=== PATIENT | male | born 1960 | race African-American/Black ===

== ENCOUNTER 2016-04-25 08:34 | Inpatient (IN) | payer OTHER ==
[2016-04-25 08:59] VITALS: BMI 25.0
--- NOTE | 2016-04-25 12:51 | HP ---
CIWA Score - CIWA Score Nausea/Vomitin-No Nausea/No Vomiting Muscle Tremors: 4-Moderate,w/Arms Extend Anxiety: 4-Mod. Anxious/Guarded Agitation: 4-Moderately Restless Paroxysmal Sweats: 3 Orientation: 0-Oriented Tacttile Disturbances: 0-None Auditory Disturbances: 0-None Visual Disturbances: 0-None Headache: 2-Mild CIWA-Ar Total Score: 17 Admission ROS BHS - HPI Chief Complaint: I am tired and need to stop. Allergies/Adverse Reactions: Allergies Allergy/AdvReac Type Severity Reaction Status Date / Time No Known Allergies Allergy Verified 04/25/16 09:56 History of Present Illness: pt is a 56yr old male with a history of alcohol and crack/cocaine dependence seeking detox for treatment. Exam Limitations: No Limitations - Ebola screening Have you traveled outside of the country in the last 21 days: No Have you had contact with anyone from an Ebola affected area: No Have you been sick,other than usual withdrawal symptoms: No Do you have a fever: No - Review of Systems Constitutional: Chills, Diaphoresis, Loss of Appetite, Night Sweats, Unintentional Wgt. Loss EENT: reports: No Symptoms Reported Respiratory: reports: Cough, Productive cough Cardiac: reports: No Symptoms Reported GI: reports: Poor Appetite, Poor Fluid Intake : reports: No Symptoms Reported Musculoskeletal: reports: Back Pain Integumentary: reports: Flushing, Sweating Neuro: reports: Headache, Tingling, Tremors Endocrine: reports: Excessive Sweating, Flushing, Intolerance to Cold, Intolerance to Heat Hematology: reports: No Symptoms Reported Psychiatric: reports: Judgement Intact, Mood/Affect Appropiate, Orientated x3, Agitated, Anxious Other Systems: Reviewed and Negative Patient History - Patient Medical History Hx Anemia: No Hx Asthma: No Hx Chronic Obstructive Pulmonary Disease (COPD): No Hx Cancer: No Hx Cardiac Disorders: No Hx Congestive Heart Failure: No Hx Hypertension: No Hx Hypercholesterolemia: No Hx Pacemaker: No HX Cerebrovascular Accident: No Hx Seizures: No Hx Dementia: No Hx Diabetes: No Hx Gastrointestinal Disorders: No Hx Liver Disease: No Hx Genitourinary Disorders: No Hx Sexually Transmitted Disorders: No Hx Renal Disease (ESRD): No Hx Thyroid Disease: No Hx Human Immunodeficiency Virus (HIV): No (negative) Hx Hepatitis C: No (negative) Hx Depression: No Hx Suicide Attempt: No (denies) Hx Bipolar Disorder: No Hx Schizophrenia: No - Patient Surgical History Past Surgical History: No Hx Neurologic Surgery: No Hx Cataract Extraction: No Hx Cardiac Surgery: No Hx Lung Surgery: No Hx Breast Surgery: No Hx Breast Biopsy: No Hx Abdominal Surgery: No Hx Appendectomy: No Hx Cholecystectomy: No Hx Genitourinary Surgery: No Hx Section: No Hx Orthopedic Surgery: No Anesthesia Reaction: No - PPD History Previous Implant?: Yes Documented Results: Negative w/o proof PPD to be Administered?: Yes - Reproductive History Patient is a Female of Child Bearing Age (11 -55 yrs old): No - Smoking Cessation Smoking history: Current every day smoker Have you smoked in the past 12 months: Yes Aproximately how many cigarettes per day: 6 Hx Chewing Tobacco Use: No Initiated information on smoking cessation: Yes 'Breaking Loose' booklet given: 04/25/16 - Substance & Tx. History Hx Alcohol Use: Yes Hx Substance Use: Yes Substance Use Type: Alcohol - Substances Abused Crack Route: Smoking Frequency: Daily Amount used: $200 Age of first use: 30 Date of Last Use: 04/24/16 Heroin Route: Inhalation Frequency: 1-3 times last 30 days Amount used: 1 bag Age of first use: 43 Date of Last Use: 04/24/16 Alcohol-vodka/beer Route: Oral Frequency: Daily Amount used: 5-6 pts./3-6 pks. Age of first use: 16 Date of Last Use: 04/25/16 Family Disease History - Family Disease History Family History: Denies Admission Physical Exam S - Vital Signs Vital Signs: Vital Signs - 24 hr 04/25/16 08:57 Temperature 97.0 F L Pulse Rate 80 Respiratory 18 Rate Blood Pressure 117/68 - Physical General Appearance: Yes: Appropriately Dressed, Moderate Distress, Alcohol on Breath, Tremorous, Irritable, Sweating, Anxious HEENTM: Yes: Normal Voice, Nasal Congestion Respiratory: Yes: Lungs Clear, Normal Breath Sounds, No Respiratory Distress Neck: Yes: No masses,lesions,Nodules Breast: Yes: Within Normal Limits Cardiology: Yes: Regular Rhythm, Regular Rate, S1, S2 Abdominal: Yes: Normal Bowel Sounds, Non Tender, Soft Genitourinary: Yes: Within Normal Limits Back: Yes: Normal Inspection Musculoskeletal: Yes: full range of Motion Extremities: Yes: Normal Capillary Refill, Normal Inspection, Tremors Neurological: Yes: Fully Oriented, Alert, Normal Response Integumentary: Yes: Normal Color, Diaphoresis Lymphatic: Yes: Within Normal Limits - Diagnostic (1) Alcohol dependence with uncomplicated withdrawal Current Visit: Yes Status: Chronic (2) Crack cocaine use Current Visit: Yes Status: Chronic Cleared for Admission [facility] - Detox or Rehab [facility] Level of Care: Medically Managed Detox Regimen/Protocol: Librium [facility] Breath Alcohol Content Breath Alcohol Content: 0.016 Urine Drug Screen - Results Drug Screen Negative: No Urine Drug Screen Results: HEATHER-Cocaine, OPI-Opiates
[2016-04-25] MEDS ORDERED: MAGNESIUM CITRATE 300 ML BOTTLE PO PRN (12:52)
[2016-04-25] MEDS ORDERED: MAGNESIUM HYDROX 2400MG/30ML ORAL SUSPENSION 30 ML CUP PO PRN (12:52)
[2016-04-25] MEDS ORDERED: IBUPROFEN 400 MG TABLET (FP) PO PRN (12:52)
[2016-04-25] MEDS ORDERED: chlordiazePOXIDE HCL 25 MG CAPSULE PO PRN (12:52)
[2016-04-25] MEDS ORDERED: LOPERAMIDE HCL 2 MG CAPSULE PO PRN (12:52)
[2016-04-25] MEDS ORDERED: MAG HYDROX/AL HYDROX/SIMETH 30 ML UNIT-DOSE CUP PO PRN (12:52)
[2016-04-25] MEDS ORDERED: MENTHOL/PHENOL 1 EACH UD MM PRN (12:52)
[2016-04-25] MEDS ORDERED: hydrOXYzine PAMOATE 50 MG CAPSULE (FP) PO PRN (12:52)
[2016-04-25] MEDS ORDERED: guaiFENesin/D-METHORPHAN HB 10 ML UNIT-DOSE CUPS PO PRN (12:52)
[2016-04-25] MEDS ORDERED: ACETAMINOPHEN 325 MG TABLET (FP) PO PRN (12:52)
[2016-04-25] MEDS ORDERED: chlordiazePOXIDE HCL 25 MG CAPSULE PO ONE (12:52)
[2016-04-25] MEDS ORDERED: P-EPHED 60MG/TRIPROLIDI 2.5MG TABLET PO PRN (12:52)
[2016-04-25] MEDS: chlordiazePOXIDE HCL 25 MG CAPSULE PO SCH ×3 (13:11→22:10)
--- NOTE | 2016-04-25 13:56 | EKG ---
Test Reason : Blood Pressure : / mmHG Vent. Rate : 067 BPM Atrial Rate : 067 BPM P-R Int : 160 ms QRS Dur : 096 ms QT Int : 418 ms P-R-T Axes : 056 073 062 degrees QTc Int : 441 ms NORMAL SINUS RHYTHM MINIMAL VOLTAGE CRITERIA FOR LVH, MAY BE NORMAL VARIANT EARLY REPOLARIZATION BORDERLINE ECG NO PREVIOUS ECGS AVAILABLE Confirmed by SARAHI LUIS, KATIANA ([id number]) on 04/25/2016 1:55:25 PM Referred By: Dayo Vizcarra Confirmed By:KATIANA MCCLAIN MD
[2016-04-25 19:22] LABS: URINE APPEARANCE CLEAR; URINE BILIRUBIN NEGATIVE (NEGATIVE); URINE BLOOD NEGATIVE (NEGATIVE); URINE COLOR LTYELLOW; URINE GLUCOSE (UA) NEGATIVE (NEGATIVE); URINE KETONE NEGATIVE (NEGATIVE); URINE LEUK ESTERASE NEGATIVE (NEGATIVE); URINE NITRITE NEGATIVE (NEGATIVE); URINE PROTEIN NEGATIVE (NEGATIVE); URINE UROBILINOGEN NEGATIVE E.U./dl (0.2-1.0)
[2016-04-25] MEDS: diphenhydrAMINE HCL 50 MG CAPSULE PO PRN (22:09)
[2016-04-25] MEDS: THIAMINE HCL 100 MG TABLET (FP) PO SCH (22:09)
[2016-04-26] MEDS: chlordiazePOXIDE HCL 25 MG CAPSULE PO SCH ×4 (05:47→22:10)
[2016-04-26 10:10] LABS: MCH 32.2 pg (25.7-33.7); MCHC 33.2 g/dl (32.0-35.9); MEAN CELL VOLUME 97.1 fl (80-96); MEAN PLT VOLUME 7.9 fl (7.5-11.1); PLATELET COUNT 154 K/MM3 (134-434); RDW 14.1 % (11.9-15.9); WHITE BLOOD COUNT 3.1 K/mm3 (4.0-10.0)
[2016-04-26] MEDS: NICOTINE 14 MG/24 HOURS TOPICAL PATCH TD SCH (10:10)
[2016-04-26] MEDS: PRENATAL VITAMINS W/ FOLIC ACID TABLET (FP) PO SCH (10:10)
[2016-04-26] MEDS: NICOTINE POLACRILEX 4 MG GUM BUC PRN ×2 (10:11→22:49)
[2016-04-26 10:31] LABS: ALBUMIN 3.8 g/dl (3.4-5.0); ALK PHOS 131 U/L (45-117); ANION GAP 9 (8-16); BILIRUBIN,TOTAL 0.9 mg/dL (0.2-1.0); CO2 32 mmol/L (21-32); GLUCOSE,RANDOM 96 mg/dL (74-106); SGOT/AST 32 U/L (15-37); SGPT/ALT 24 U/L (12-78)
[2016-04-26] MEDS: THIAMINE HCL 100 MG TABLET (FP) PO SCH (22:09)
[2016-04-26] MEDS: diphenhydrAMINE HCL 50 MG CAPSULE PO PRN (22:10)
[2016-04-27] MEDS: chlordiazePOXIDE HCL 25 MG CAPSULE PO SCH (05:35)
[2016-04-27] MEDS: PRENATAL VITAMINS W/ FOLIC ACID TABLET (FP) PO SCH (10:13)
[2016-04-27] MEDS: NICOTINE 14 MG/24 HOURS TOPICAL PATCH TD SCH (10:13)
[2016-04-27] MEDS: chlordiazePOXIDE 5 MG CAPSULE PO SCH ×3 (10:13→22:15)
[2016-04-27] MEDS: NICOTINE POLACRILEX 4 MG GUM BUC PRN ×2 (10:14→13:48)
--- NOTE | 2016-04-27 10:26 | PN ---
[facility] CIWA - CIWA Score Nausea/Vomitin-No Nausea/No Vomiting Muscle Tremors: 4-Moderate,w/Arms Extend Anxiety: 4-Mod. Anxious/Guarded Agitation: 4-Moderately Restless Paroxysmal Sweats: 1-Minimal Palms Moist Orientation: 0-Oriented Tacttile Disturbances: 3-Moderate Itch/Numb/Burn Auditory Disturbances: 0-None Visual Disturbances: 0-None Headache: 0-None Present CIWA-Ar Total Score: 16 BHS Progress Note (SOAP) Subjective: ANXIETY,SWEATS,TREMORS,FATIGUE. Objective: 04/27/16 10:25 Vital Signs Temperature 96.1 F L 04/27/16 09:40 Pulse Rate 82 04/27/16 09:40 Respiratory Rate 20 04/27/16 09:40 Blood Pressure 120/86 04/27/16 09:40 O2 Sat by Pulse Oximetry (%) Laboratory Last Values WBC 3.1 K/mm3 (4.0-10.0) L 04/26/16 06:00 RBC 4.11 M/mm3 (4.00-5.60) 04/26/16 06:00 Hgb 13.3 GM/dL (11.7-16.9) 04/26/16 06:00 Hct 39.9 % (35.4-49) 04/26/16 06:00 MCV 97.1 fl (80-96) H 04/26/16 06:00 MCHC 33.2 g/dl (32.0-35.9) 04/26/16 06:00 RDW 14.1 % (11.9-15.9) 04/26/16 06:00 Plt Count 154 K/MM3 (134-434) 04/26/16 06:00 MPV 7.9 fl (7.5-11.1) 04/26/16 06:00 Sodium 143 mmol/L (136-145) 04/26/16 06:00 Potassium 3.4 mmol/L (3.5-5.1) L 04/26/16 06:00 Chloride 102 mmol/L (98-107) 04/26/16 06:00 Carbon Dioxide 32 mmol/L (21-32) 04/26/16 06:00 Anion Gap 9 (8-16) 04/26/16 06:00 BUN 9 mg/dL (7-18) 04/26/16 06:00 Creatinine 1.0 mg/dL (0.7-1.3) 04/26/16 06:00 Creat Clearance w eGFR > 60 (>60) 04/26/16 06:00 Random Glucose 96 mg/dL (74-106) 04/26/16 06:00 Calcium 9.0 mg/dL (8.5-10.1) 04/26/16 06:00 Total Bilirubin 0.9 mg/dL (0.2-1.0) 04/26/16 06:00 AST 32 U/L (15-37) 04/26/16 06:00 ALT 24 U/L (12-78) 04/26/16 06:00 Alkaline Phosphatase 131 U/L (45-117) H 04/26/16 06:00 Total Protein 7.0 g/dl (6.4-8.2) 04/26/16 06:00 Albumin 3.8 g/dl (3.4-5.0) 04/26/16 06:00 Urine Color Ltyellow 04/25/16 13:40 Urine Appearance Clear 04/25/16 13:40 Urine pH 6.0 (5.0-8.0) 04/25/16 13:40 Ur Specific [place] 1.015 (1.001-1.035) 04/25/16 13:40 Urine Protein Negative (NEGATIVE) 04/25/16 13:40 Urine Glucose (UA) Negative (NEGATIVE) 04/25/16 13:40 Urine Ketones Negative (NEGATIVE) 04/25/16 13:40 Urine Blood Negative (NEGATIVE) 04/25/16 13:40 Urine Nitrite Negative (NEGATIVE) 04/25/16 13:40 Urine Bilirubin Negative (NEGATIVE) 04/25/16 13:40 Urine Urobilinogen Negative E.U./dl (0.2-1.0) 04/25/16 13:40 Ur Leukocyte Esterase Negative (NEGATIVE) 04/25/16 13:40 RPR Titer Nonreactive (NONREACTIVE) 04/26/16 06:00 Hepatitis C Antibody 0.1 s/co ratio (0.0-0.9) 04/25/16 12:55 Assessment: 04/27/16 10:26 WITHDRAWAL SX Plan: CONTINUE DETOX
[2016-04-27] MEDS: POTASSIUM CHLORIDE TABS 20 MEQ TABLET.ER (FP) PO SCH (12:12)
[2016-04-27] MEDS: diphenhydrAMINE HCL 50 MG CAPSULE PO PRN (22:15)
[2016-04-27] MEDS: THIAMINE HCL 100 MG TABLET (FP) PO SCH (22:15)
[2016-04-28] MEDS: chlordiazePOXIDE 5 MG CAPSULE PO SCH (05:58)
[2016-04-28] MEDS: PRENATAL VITAMINS W/ FOLIC ACID TABLET (FP) PO SCH (10:25)
[2016-04-28] MEDS: POTASSIUM CHLORIDE TABS 20 MEQ TABLET.ER (FP) PO SCH (10:25)
[2016-04-28] MEDS: chlordiazePOXIDE HCL 10 MG CAPSULE PO SCH ×3 (10:25→22:19)
[2016-04-28] MEDS: NICOTINE POLACRILEX 4 MG GUM BUC PRN ×2 (10:26→14:39)
[2016-04-28] MEDS: NICOTINE 14 MG/24 HOURS TOPICAL PATCH TD SCH (10:26)
--- NOTE | 2016-04-28 13:45 | PN ---
BHS Progress Note (SOAP) Subjective: sweating,interrupted sleep,restless Objective: 04/28/16 13:41 Vital Signs - 8 hr 04/28/16 04/28/16 06:41 10:46 Temperature 96.1 F L 98.6 F Pulse Rate 74 89 Respiratory 16 20 Rate Blood Pressure 106/62 112/73 Laboratory Last Values WBC 3.1 K/mm3 (4.0-10.0) L 04/26/16 06:00 RBC 4.11 M/mm3 (4.00-5.60) 04/26/16 06:00 Hgb 13.3 GM/dL (11.7-16.9) 04/26/16 06:00 Hct 39.9 % (35.4-49) 04/26/16 06:00 MCV 97.1 fl (80-96) H 04/26/16 06:00 MCHC 33.2 g/dl (32.0-35.9) 04/26/16 06:00 RDW 14.1 % (11.9-15.9) 04/26/16 06:00 Plt Count 154 K/MM3 (134-434) 04/26/16 06:00 MPV 7.9 fl (7.5-11.1) 04/26/16 06:00 Sodium 143 mmol/L (136-145) 04/26/16 06:00 Potassium 3.4 mmol/L (3.5-5.1) L 04/26/16 06:00 Chloride 102 mmol/L (98-107) 04/26/16 06:00 Carbon Dioxide 32 mmol/L (21-32) 04/26/16 06:00 Anion Gap 9 (8-16) 04/26/16 06:00 BUN 9 mg/dL (7-18) 04/26/16 06:00 Creatinine 1.0 mg/dL (0.7-1.3) 04/26/16 06:00 Creat Clearance w eGFR > 60 (>60) 04/26/16 06:00 Random Glucose 96 mg/dL (74-106) 04/26/16 06:00 Calcium 9.0 mg/dL (8.5-10.1) 04/26/16 06:00 Total Bilirubin 0.9 mg/dL (0.2-1.0) 04/26/16 06:00 AST 32 U/L (15-37) 04/26/16 06:00 ALT 24 U/L (12-78) 04/26/16 06:00 Alkaline Phosphatase 131 U/L (45-117) H 04/26/16 06:00 Total Protein 7.0 g/dl (6.4-8.2) 04/26/16 06:00 Albumin 3.8 g/dl (3.4-5.0) 04/26/16 06:00 Urine Color Ltyellow 04/25/16 13:40 Urine Appearance Clear 04/25/16 13:40 Urine pH 6.0 (5.0-8.0) 04/25/16 13:40 Ur Specific [place] 1.015 (1.001-1.035) 04/25/16 13:40 Urine Protein Negative (NEGATIVE) 04/25/16 13:40 Urine Glucose (UA) Negative (NEGATIVE) 04/25/16 13:40 Urine Ketones Negative (NEGATIVE) 04/25/16 13:40 Urine Blood Negative (NEGATIVE) 04/25/16 13:40 Urine Nitrite Negative (NEGATIVE) 04/25/16 13:40 Urine Bilirubin Negative (NEGATIVE) 04/25/16 13:40 Urine Urobilinogen Negative E.U./dl (0.2-1.0) 04/25/16 13:40 Ur Leukocyte Esterase Negative (NEGATIVE) 04/25/16 13:40 RPR Titer Nonreactive (NONREACTIVE) 04/26/16 06:00 Hepatitis C Antibody 0.1 s/co ratio (0.0-0.9) 04/25/16 12:55 labs noted,K+ 3.4 on k-dur Assessment: 04/28/16 13:42 Withdrawal sx. Plan: Continue detox
[2016-04-28] MEDS: diphenhydrAMINE HCL 50 MG CAPSULE PO PRN (22:19)
[2016-04-28] MEDS: THIAMINE HCL 100 MG TABLET (FP) PO SCH (22:19)
[2016-04-29] MEDS: chlordiazePOXIDE HCL 10 MG CAPSULE PO SCH (05:52)
[2016-04-29 06:27] VITALS: BP 102/61; PULSE 109; TEMP 95.9
--- NOTE | 2016-04-29 13:18 | DS ---
[facility] Detox Discharge Summary Admission Date: 04/25/16 Discharge Date: 04/29/16 - History Present History: Alcohol Dependence, Cocaine Dependence Pertinent Past History: Denies - Physical Exam Results Vital Signs: Vital Signs Temperature 95.9 F L 04/29/16 06:27 Pulse Rate 109 H 04/29/16 06:27 Respiratory Rate 18 04/29/16 06:27 Blood Pressure 102/61 04/29/16 06:27 O2 Sat by Pulse Oximetry (%) Pertinent Admission Physical Exam Findings: Withdrawal symptoms Laboratory Tests 04/25/16 04/25/16 04/26/16 12:55 13:40 06:00 WBC 3.1 L RBC 4.11 Hgb 13.3 Hct 39.9 MCV 97.1 H MCHC 33.2 RDW 14.1 Plt Count 154 MPV 7.9 Sodium Potassium Chloride Carbon Dioxide Anion Gap BUN Creatinine Creat Clearance w eGFR Random Glucose Calcium Total Bilirubin AST ALT Alkaline Phosphatase Total Protein Albumin Urine Color Ltyellow Urine Appearance Clear Urine pH 6.0 Ur Specific [place] 1.015 Urine Protein Negative Urine Glucose (UA) Negative Urine Ketones Negative Urine Blood Negative Urine Nitrite Negative Urine Bilirubin Negative Urine Urobilinogen Negative Ur Leukocyte Esterase Negative RPR Titer Hepatitis C Antibody 0.1 04/26/16 04/26/16 06:00 06:00 WBC RBC Hgb Hct MCV MCHC RDW Plt Count MPV Sodium 143 Potassium 3.4 L Chloride 102 Carbon Dioxide 32 Anion Gap 9 BUN 9 Creatinine 1.0 Creat Clearance w eGFR > 60 Random Glucose 96 Calcium 9.0 Total Bilirubin 0.9 AST 32 ALT 24 Alkaline Phosphatase 131 H Total Protein 7.0 Albumin 3.8 Urine Color Urine Appearance Urine pH Ur Specific Patten Urine Protein Urine Glucose (UA) Urine Ketones Urine Blood Urine Nitrite Urine Bilirubin Urine Urobilinogen Ur Leukocyte Esterase RPR Titer Nonreactive Hepatitis C Antibody Labs noted: K 3.4 (replenished) - Treatment Hospital Course: Detox Protocol Followed, Detoxed Safely, Responded well, Discharged Condition Good - Medication Discharge Medications: Ambulatory Orders NK [No Known Home Medication] 04/25/16 - Diagnosis (1) Alcohol dependence with uncomplicated withdrawal Status: Acute (2) Crack cocaine use Status: Chronic (3) Nicotine dependence Status: Chronic - AMA Did Patient Leave Against Medical Advice: No
== END 2016-04-29 09:42 | disposition home or self-care (01) | DRG 774 ==
LOC: YASAS 08:34 → Y3N 11:55
PROVIDERS: ADMIT Internal Medicine; ATTEND Internal Medicine
PROC: HZ2ZZZZ Detoxification Services for Substance Abuse Treatment (ICD-10-PCS; principal; 2016-04-29)
DX: F10.230 Alcohol dependence with withdrawal, uncomplicated (principal); F17.210 Nicotine dependence, cigarettes, uncomplicated; F14.10 Cocaine abuse, uncomplicated; Z59.0 Homelessness
CPT/HCPCS: 36415; 80053; 81003; 85027; 86593; 93005; 93010